=== PATIENT | male | born 1995 | race Caucasian/White ===

== ENCOUNTER 2020-02-10 10:06 | Emergency (ER) | payer OTHER ==
[2020-02-10 10:12] VITALS: BP 136/100; PULSE 90; TEMP 99; BMI 33.4
--- NOTE | 2020-02-10 10:39 | PDOC ---
Attending Attestation - Resident Resident Name: Anurag Mcclellan - ED Attending Attestation I have performed the following: I have examined & evaluated the patient, The case was reviewed & discussed with the resident, I agree w/resident's findings & plan, Exceptions are as noted - HPI HPI: 02/10/20 10:37 24 yo male h/o recurrent pilonidal cyst, here with c/o pain and swelling and irriation at area. last drainage was 2 yrs ago a [facility]. has not seen a surgeon for definitive treatment yet. no F/c n/v. no other complaints. no change to bowel.s swelling in area started 4 days ago. - Physicial Exam PE: 02/10/20 11:41 awake alert lungs clear bilat heart rrr no mrg abd soft nt nd ext wwp. left buttock upper buttock with lateral abscess, erythema, indurated area. old scar from prior I & D. mild surrounding erythema 1- 2 inches surrounding area of erythema. - Medical Decision Making 02/10/20 11:42 24 yo male h/o abscess, here with left buttock sweling redness and pain. induration on exam. questionable pilonidal, however off midline, extending to midline. plan focused ED us focused ED us obtained. large fluid collection measruing 3x2x5 cm. 1cm below surface of skin. impression: large abscess I&D performed. large purulence expressed. 10 - 15 ml. cultures sent. pt already on bactrim x 3 days will continue. recommend bath soaks starting tomorrow. return wednesday for packing removal. repeat wound check. motrin for pain. Discharge - Discharge Information Problems reviewed: Yes Clinical Impression/Diagnosis: Abscess of buttock, left Condition: Stable Disposition: HOME - Admission No - Follow up/Referral Referrals: Junior Solo MD [Staff Physician] - - Patient Discharge Instructions Patient Printed Discharge Instructions: DI for Incision and Drainage of a Skin Abscess Additional Instructions: you need to follow up with a surgeon for recurrent abscess . you have been given a referral for DR Solo, see information and call to schedule an appointment within 1 - 2 weeks. you should continue taking bactrim twice daily until completed ( antiobiotics) for your pain you can take ibuprofen 600 mg. return on 02/11 for repeat wound check and packing removal. you can begin soaking in tub tomorrow, and should do so daily return for worsening redness. fever or any concerns. - Post Discharge Activity
[2020-02-10] MEDS ORDERED: LIDOCAINE HCL 1%, 10 MG/ML (20ML VIAL) ONE (10:43)
--- NOTE | 2020-02-10 11:29 | PDOC ---
History of Present Illness - General Chief Complaint: Abscess Boil Stated Complaint: ABSCESS Time Seen by Provider: 02/10/20 11:29 - History of Present Illness Initial Comments: 02/10/20 11:34 24 M with pilonidal cyst (s/p I&D 2 years ago at [facility]) came here with buttock pain. Pain happened acutely yesterday night., Patient couldn't sleep. No nausea, vomiting, fever,chills, chest pain, abdominal pain. Denies trauma. Rafael slater went to an urgent care yesterday; there he omitted the I&D and took the bactrim DS prescription home. Today, he came here due to severe pain. Patient had I&D done 2 years ago at [facility] for buttock pain. There, they diagnosed him with pilonidal cyst. He had to be I&D three times there due to small incision. PMHX: as in HPI PSHX: see above Meds: bactrim. Allergies: none Tob:none Etoh: none Rec drugs:none PCP: has one , but couldn't remember the name. ROS GENERAL/CONSTITUTIONAL: No fever or chills. No weakness. HEAD, EYES, EARS, NOSE AND THROAT: No change in vision. No ear pain or discharge. No sore throat. CARDIOVASCULAR: No chest pain or shortness of breath RESPIRATORY: No cough, wheezing, or hemoptysis. GASTROINTESTINAL: No nausea, vomiting, diarrhea or constipation. GENITOURINARY: No dysuria, frequency, or change in urination. MUSCULOSKELETAL: Buttock pain. No neck or back pain. SKIN: No rash NEUROLOGIC: No headache, vertigo, loss of consciousness, or change in st rength/sensation. ENDOCRINE: No increased thirst. No abnormal weight change HEMATOLOGIC/LYMPHATIC: No anemia, easy bleeding, or history of blood clots. ALLERGIC/IMMUNOLOGIC: No hives or skin allergy. PE GENERAL: Awake, alert, and fully oriented, in no acute distress HEAD: No signs of trauma, normocephalic, atraumatic EYES: PERRLA, EOMI, sclera anicteric, conjunctiva clear ENT: Auricles normal inspection, hearing grossly normal, nares patent, oropharynx clear without exudates. Moist mucosa NECK: Normal ROM, supple, no lymphadenopathy, JVD, or masses LUNGS: No distress, speaks full sentences, clear to auscultation bilaterally HEART: Regular rate and rhythm, normal S1 and S2, no murmurs, rubs or gallops, peripheral pulses normal and equal bilaterally. ABDOMEN: Soft, nontender, normoactive bowel sounds. No guarding, no rebound. No masses EXTREMITIES : Normal inspection, Normal range of motion, no edema. No clubbing or cyanosis. left Buttock tenderness. warmth/erythema NEUROLOGICAL: Cranial nerves II through XII grossly intact. Normal speech, normal gait, no focal sensorimotor deficits SKIN: Warm, Dry, normal turgor, no rashes or lesions noted 02/10/20 11:36 02/10/20 11:50 Past History - Medical History Allergies/Adverse Reactions: Allergies Allergy/AdvReac Type Severity Reaction Status Date / Time No Known Allergies Allergy Verified 02/12/20 13:55 Home Medications: Ambulatory Orders NK [No Known Home Medication] 02/10/20 COPD: No - Immunization History Immunization Up to Date: Yes - Psycho-Social/Smoking History Smoking History: Never smoked Have you smoked in the past 12 months: No Information on smoking cessation initiated: No - Substance Abuse Hx (Audit-C & DAST Scrn) How often the patient has a drink containing alcohol: Never Score: In Men: 4 or > Positive; In Women: 3 or > Positive: 0 Screen Result (Pos requires Nsg. Audit-10AR): Negative In the last yr the pt used illegal drug/Rx for NonMed reason: No Score: Yes response is considered Positive: 0 Screen Result (Positive result requires Nsg. DAST-10): Negative *Physical Exam - Vital Signs Last Vital Signs Temp Pulse Resp BP Pulse Ox 99 F 90 17 136/100 100 02/10/20 10:09 02/10/20 10:09 02/10/20 10:09 02/10/20 10:09 02/10/20 10:09 Procedures - Incision and Drainage I&D Site: Left: Buttock Betadine cleansed: Yes Anesthesia: 1% Lidocaine Volume(ml): 6 Blade Size: 10 Attempts: 1 Plain Packing: Yes Dressing: Yes Medical Decision Making - Medical Decision Making 02/10/20 11:55 24 M with pilonidal cyst presented with left buttock pain. S/p day of bactrim. -ddx: pilonidal cyst vs buttock abscess -Plan: POCUS of buttock. Big pocket of abscess 3cm x2cm x5cm. -I&D (please see procedure note), Pus roughly 20cc. Wound culture obtained. -tylenol for pain control. -Patient felt better after drainage. -continue to take bactrim at home. -stable to d/c and follow up with gen surg 02/10/20 12:00 02/10/20 12:01 Discharge - Discharge Information Problems reviewed: Yes Clinical Impression/Diagnosis: Abscess of buttock, left Condition: Stable Disposition: HOME - Follow up/Referral Referrals: Junior Solo MD [Staff Physician] - - Patient Discharge Instructions Patient Printed Discharge Instructions: DI for Incision and Drainage of a Skin Abscess Additional Instructions: you need to follow up with a surgeon for recurrent abscess . you have been given a referral for DR Solo, see information and call to schedule an appointment within 1 - 2 weeks. you should continue taking bactrim twice daily until completed ( antiobiotics) for your pain you can take ibuprofen 600 mg. return on 02/11 for repeat wound check and packing removal. you can begin soaking in tub tomorrow, and should do so daily return for worsening redness. fever or any concerns. - Post Discharge Activity
[2020-02-10] MEDS ORDERED: IBUPROFEN 600 MG TABLET (FP) PO ONE ×2 (11:31→11:39)
== END 2020-02-10 11:51 | disposition home or self-care (01) ==
LOC: FER 10:06
PROC: 0J990ZZ Drainage of Buttock Subcutaneous Tissue and Fascia, Open Approach (ICD-10-PCS; principal; 2020-02-10)
DX: L02.31 Cutaneous abscess of buttock (principal)
CPT/HCPCS: 76705-TC; 87070; 87205; 99283-25

== ENCOUNTER 2020-02-12 13:55 | Emergency (ER) | payer OTHER ==
[2020-02-12 14:00] VITALS: BP 127/65; PULSE 72; TEMP 99.2; BMI 33.4
--- NOTE | 2020-02-12 14:52 | PDOC ---
History of Present Illness - General Chief Complaint: Revisit,Wound Recheck Stated Complaint: wound check Time Seen by Provider: 02/12/20 14:08 History Source: Patient Exam Limitations: No Limitations - History of Present Illness Initial Comments: 02/12/20 14:48 24y M presents for wound check. Pt had I&D and packing done 3 days ago. he has been doing well, pain improved, no fever/chills. scant dc from the packing site. ROS: Skin: scant dc general: denies fever/chills abd: denies n/v exam: General: well appearing, in no distress skin: abssess site non erythemadous, no flcutance, mildly tenern to palpation, packing in place. a&p approx 10 inchdes of packing removed, no dc expressed no signs of infection will dc with outpt fu return precautions were discussed I discussed the physical exam findings, ancillary test results and final diagnoses with the patient. I answered all of the patient's questions. The patient was satisfied with the care received and felt comfortable with the discharge plan and treatment plan. The patient will call their primary care physician within 24 hours to arrange follow-up and will return to the Emergency Department with any new, persistent or worsening symptoms. Past History - Medical History Allergies/Adverse Reactions: Allergies Allergy/AdvReac Type Severity Reaction Status Date / Time No Known Allergies Allergy Verified 02/12/20 13:55 Home Medications: Ambulatory Orders NK [No Known Home Medication] 02/10/20 COPD: No - Immunization History Immunization Up to Date: Yes - Psycho-Social/Smoking History Smoking History: Never smoked Have you smoked in the past 12 months: No - Substance Abuse Hx (Audit-C & DAST Scrn) How often the patient has a drink containing alcohol: Never Score: In Men: 4 or > Positive; In Women: 3 or > Positive: 0 Screen Result (Pos requires Nsg. Audit-10AR): Negative In the last yr the pt used illegal drug/Rx for NonMed reason: No Score: Yes response is considered Positive: 0 Screen Result (Positive result requires Nsg. DAST-10): Negative *Physical Exam - Vital Signs Last Vital Signs Temp Pulse Resp BP Pulse Ox 99.2 F 72 14 127/65 97 02/12/20 13:55 02/12/20 13:55 02/12/20 13:55 02/12/20 13:55 02/12/20 13:55 Discharge - Discharge Information Problems reviewed: Yes Clinical Impression/Diagnosis: Visit for wound check, Abscess packing removal Condition: Stable Disposition: HOME - Admission No - Follow up/Referral Referrals: Junior Solo MD [Staff Physician] - - Patient Discharge Instructions Patient Printed Discharge Instructions: How to Care for a Surgical Wound Additional Instructions: Return to the emergency department immediately with ANY new, persistent or worsening symptoms Eluding any worsening pain, redness, swelling or other concerns. You MUST call and follow up with your doctor in 3-4 days for further evaluation of your symptoms. Results were discussed with you. Please make sure your doctor reviews the results of your emergency evaluation. Your Emergency Department visit is not complete without a follow up with your doctor. Print Language: [id number] - Post Discharge Activity
== END 2020-02-12 15:13 | disposition home or self-care (01) ==
LOC: FER 13:55
DX: Z48.00 Encounter for change or removal of nonsurgical wound dressing (principal)
CPT/HCPCS: 99281-25